=== PATIENT | female | born 1965 | race Caucasian/White ===

== ENCOUNTER 2019-02-24 09:32 | Emergency (ER) | payer OTHER ==
[~2019-02-24] VITALS: Ht 172.7 cm; Wt 107.5 kg
== END 2019-02-24 11:04 | disposition home or self-care (01) ==
LOC: ED 09:32
DX: S93.602A Unspecified sprain of left foot, initial encounter (principal); Z88.1 Allergy status to other antibiotic agents; W01.0XXA Fall on same level from slipping, tripping and stumbling without subsequent striking against object, initial encounter; Y93.41 Activity, dancing; Y92.219 Unspecified school as the place of occurrence of the external cause; Y99.8 Other external cause status

== ENCOUNTER → 2020-05-25 | Outpatient (CLI) | payer OTHER | END | disposition home or self-care (01) | LOC: COVID19 13:47 | PROVIDERS: ATTEND Internal Medicine | DX: U07.1 COVID-19 (principal) ==